=== PATIENT | male | born 1985 | race African-American/Black ===

== ENCOUNTER 2017-07-02 21:09 | Emergency (ER) | payer OTHER ==
[~2017-07-02] VITALS: Ht 188 cm; Wt 106.6 kg
--- NOTE | ~2017-07-02 | EKG ---
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
[~2017-07-02 21:09] MED LIST: [UNRECOGNIZED DRUG - OTHER]
[2017-07-02 21:10] VITALS: BP 148/99
[2017-07-02 21:40] LABS: HEMATOCRIT 42.7 % (42.0-52.0); HEMOGLOBIN 14.4 gm/dL (14.0-18.0); MCH 30.4 pg (26.0-34.0); MCHC 33.9 g/dL (28.0-37.0); MCV 89.7 fL (80.0-100.0); RBC 4.76 mil/uL (4.50-6.00); RDW 14.1 % (10.5-14.5); WBC 7.4 thou/uL (4.0-11.0)
[2017-07-02 21:46] LABS: ANION GAP 8 mmol/L (7-16); BUN 15 mg/dL (7-18); CALCIUM 8.8 mg/dL (8.5-10.1); CHLORIDE 110 mmol/L (98-107); CO2 27 mmol/L (21-32); CREATININE 1.1 mg/dL (0.7-1.3); GLUCOSE 106 mg/dL (74-106); POTASSIUM 3.9 mmol/L (3.5-5.1); SODIUM 145 mmol/L (136-145)
[2017-07-02 21:56] LABS: TROPONIN-I < 0.04 ng/mL (<0.06)
== END 2017-07-02 22:12 | disposition home or self-care (01) ==
LOC: ER 21:09
PROVIDERS: Physician Assistant
DX: R07.89 Other chest pain (principal); F17.210 Nicotine dependence, cigarettes, uncomplicated; W18.39XA Other fall on same level, initial encounter; Y93.89 Activity, other specified; Y92.89 Other specified places as the place of occurrence of the external cause; Y99.8 Other external cause status

== ENCOUNTER 2018-10-29 13:10 | Emergency (ER) | payer OTHER ==
[~2018-10-29] VITALS: Ht 203.2 cm; Wt 110.7 kg
[2018-10-29] MEDS ORDERED: LISINOPRIL-HCT1 EAC2 PO (13:26)
[2018-10-29 13:32] LABS: ABSOLUTE NEUTROPHILS 5.2 thou/uL (1.4-8.2); BASOPHILS 0.7 % (0.0-2.0); EOSINOPHILS 0.5 % (0.0-3.0); HEMATOCRIT 43.9 % (42.0-52.0); HEMOGLOBIN 14.8 gm/dL (14.0-18.0); LYMPHOCYTES 36.5 % (24.0-44.0); MCH 31.1 pg (26.0-34.0); MCHC 33.7 g/dL (28.0-37.0); MCV 92.4 fL (80.0-100.0); MONOCYTES 6.2 % (1.0-8.0); PLATELET COUNT 237 thou/uL (150-400); POLYS 56.1 % (36.0-66.0); RBC 4.75 mil/uL (4.50-6.00); RDW 13.6 % (10.5-14.5); URINE BILIRUBIN NEGATIVE (Negative); URINE BLOOD NEGATIVE (Negative); URINE CLARITY CLEAR; URINE COLOR YELLOW; URINE GLUCOSE-RANDOM* NEGATIVE (Negative); URINE KETONES NEGATIVE (Negative); URINE LEUKOCYTES-REFLEX NEGATIVE (Negative); URINE NITRITE-REFLEX NEGATIVE (Negative); URINE PROTEIN (DIPSTICK) NEGATIVE (Negative); URINE SPECIFIC GRAVITY <= 1.005 (1.005-1.035); URINE UROBILINOGEN 0.2 E.U./dl (0.2-1.0); WBC 9.4 thou/uL (4.0-11.0)
[2018-10-29 13:39] LABS: AMP/METHAMP Negative (Negative); BARBITURATES Negative (Negative); BENZODIAZEPINES Negative (Negative); COCAINE Negative (Negative); METHADONE Negative (Negative); OPIATES Negative (Negative); PCP POSITIVE (Negative)
[2018-10-29 13:40] LABS: CALCIUM 8.9 mg/dL (8.5-10.1); POTASSIUM 3.6 mmol/L (3.5-5.1)
[2018-10-29 13:45] LABS: ALBUMIN 3.9 g/dL (3.4-5.0); TOTAL BILIRUBIN 0.2 mg/dL (<0.1-1.0); TOTAL PROTEIN 7.3 g/dL (6.4-8.2)
[2018-10-29 17:44] VITALS: BP 109/76
== END 2018-10-29 17:44 | disposition home or self-care (01) ==
LOC: ER 13:10
PROVIDERS: Physician Assistant
DX: F10.10 Alcohol abuse, uncomplicated (principal); F16.10 Hallucinogen abuse, uncomplicated; R41.82 Altered mental status, unspecified; F17.210 Nicotine dependence, cigarettes, uncomplicated; I10 Essential (primary) hypertension; Z79.899 Other long term (current) drug therapy; Y90.9 Presence of alcohol in blood, level not specified

== ENCOUNTER 2019-11-10 01:05 | Emergency (ER) | payer OTHER ==
[~2019-11-10] VITALS: Ht 193 cm; Wt 106.6 kg
--- NOTE | ~2019-11-10 | EMS ---
[facility] [address] [place] [address] EMS Patient Care Report Name: BHAVESH MUKHERJEE Room #: DEP M.Drake#: [id number] Admission: 11/10/19 Attend Phys: Discharge: 11/10/19 Date of : 83 Report #: [id number] THIS REPORT FOR: //name// Report Transmitted: 11/10/2019 21:05 EMS Care Summary [place], [place]/[facility] Incident [id number] @ 11/10/2019 00:31 [facility] [place] [address] Patient BHAVESH MUKHERJEE Male, 33 Years 1985 Patient Address [address] [place] [address] Chief Complaint Per [place], panic attack like behavior Disposition Transported No Lights/[place] Reason Psychiatric Problem/Abnormal Behavior/Suicide Attempt Transported To [facility] Narrative Called to the scene for a psych. Upon arrival, [facility] on the scene. Pt was lying on the ground, handcuffed. They reported after he was placed in handcuffs he began having panic attack like behavior and refused to answer any questions. He also exhibited erratic tremor like activity that was inconsistent of seizure like activity. Finally, he said he needed his inhaler despite not appearing to be in resp distress. They requested transport to the local ER. Pt was moved to the EMS cot and loaded into the ambulance w/o incident. Vitals obtained. En route: no significant changes, mask placed on the pt. RR to [facility]. Vitals repeated. Arrived: pt taken to ER #6 and moved to their bed w/o incident. Pt care & report to ER staff. [facility] [address] [place] [address] EMS Patient Care Report Name: BHAVESH MUKHERJEE Room #: DEP Bette#: [id number] Admission: 11/10/19 Attend Phys: Discharge: 11/10/19 Date of : 83 Report #: [id number] Initial Vitals @00:58P: 82,R: 14,BP: 147/97,Pain: 0/10,GCS: 15,SpO2: 99,Revised Trauma: 12, @00:52P: 54,R: 16,BP: 156/100,Pain: 0/10,GCS: 15,SpO2: 98,Revised Trauma: 12, Assessments @00:43MENTAL:Person Oriented,Time Oriented,Place Oriented,Event Oriented,SKIN:HEENT:LUNG SOUNDS:ABDOMEN:PELVIS//GI:EXTREMITIES:Left Arm: No Abnormalities,Right Arm: No Abnormalities,Left Leg: No Abnormalities,Right Leg: No Abnormalities,PULSE:Radial: 2+ Normal,NEURO:No Abnormalities, Impression Anxiety reaction/Emotional upset Procedures @00:43ALS AssessmentResponse: UnchangedSucceeded@00:46StretcherResponse: Unchanged@PTAPatient RestraintResponse: UnchangedSucceeded Timeline 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,Patient Restraint,Response: UnchangedSucceeded, 00:31,Call Received 00:31,Dispatch Notified 00:31,Dispatched 00:33,En Route 00:42,On Scene 00:43,At Patient 00:43,ALS Assessment,Response: UnchangedSucceeded, 00:46,Stretcher,Response: Unchanged 00:48,Depart Scene 00:52,BP: 156/100 M,PULSE: 54,RR: 16 R,SPO2: 98 Ox,ETCO2: ,BG: ,PAIN: 0,GCS: 15, 00:58,BP: 147/97 M,PULSE: 82,RR: 14 R,SPO2: 99 Ox,ETCO2: ,BG: ,PAIN: 0,GCS: 15, 00:59,At Destination 01:19,Call Closed Disclaimer [email or web address] Copyright 2020 [employer] This EMS Care Summary contains data elements from the applicable legal record (which may be displayed differently). It is designed to provide pertinent information for the following purposes: continuity of care, clinical quality, and state data reporting. The complete legal record is available to ED staff and administrators of the receiving hospital in [employer]'s Patient Tracker. All data is provided "as is."
[~2019-11-10 01:05] MED LIST changes: +LISINOPRIL-HCT1 EAC2 PO
[2019-11-10 01:44] LABS: URINE BILIRUBIN NEGATIVE (Negative); URINE BLOOD NEGATIVE (Negative); URINE CLARITY CLEAR; URINE COLOR YELLOW; URINE GLUCOSE-RANDOM* NEGATIVE (Negative); URINE KETONES 1+ (Negative); URINE LEUKOCYTES-REFLEX NEGATIVE (Negative); URINE NITRITE-REFLEX NEGATIVE (Negative); URINE PROTEIN (DIPSTICK) NEGATIVE (Negative); URINE SPECIFIC GRAVITY >= 1.030 (1.005-1.035)
[2019-11-10 01:45] LABS: ABSOLUTE NEUTROPHILS 6.6 thou/uL (1.4-8.2); BASOPHILS 0.7 % (0.0-2.0); EOSINOPHILS 0.2 % (0.0-3.0); HEMATOCRIT 44.9 % (42.0-52.0); HEMOGLOBIN 15.7 gm/dL (14.0-18.0); MCH 32.2 pg (26.0-34.0); MCHC 34.8 g/dL (28.0-37.0); MCV 92.3 fL (80.0-100.0); MONOCYTES 5.7 % (1.0-8.0); PLATELET COUNT 249 thou/uL (150-400); POLYS 68.4 % (36.0-66.0); RBC 4.87 mil/uL (4.50-6.00); RDW 12.9 % (10.5-14.5); WBC 9.7 thou/uL (4.0-11.0)
[2019-11-10 01:50] LABS: AMP/METHAMP POSITIVE (Negative); BARBITURATES Negative (Negative); BENZODIAZEPINES Negative (Negative); CALCIUM 8.5 mg/dL (8.5-10.1); COCAINE Negative (Negative); CREATININE 1.4 mg/dL (0.7-1.3); METHADONE Negative (Negative); OPIATES Negative (Negative); PCP POSITIVE (Negative); POTASSIUM 3.7 mmol/L (3.5-5.1)
[2019-11-10 01:56] LABS: ALBUMIN 4.1 g/dL (3.4-5.0); TOTAL BILIRUBIN 0.5 mg/dL (0.2-1.0); TOTAL PROTEIN 7.4 g/dL (6.4-8.2)
[2019-11-10 03:07] VITALS: BP 134/96
--- NOTE | 2019-11-10 08:05 | EKG ---
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
== END 2019-11-10 03:08 ==
LOC: ER 01:05
PROVIDERS: Emergency Medicine
DX: R07.89 Other chest pain (principal); T40.995A Adverse effect of other psychodysleptics [hallucinogens], initial encounter; J45.909 Unspecified asthma, uncomplicated; F10.129 Alcohol abuse with intoxication, unspecified; F17.210 Nicotine dependence, cigarettes, uncomplicated; Z79.899 Other long term (current) drug therapy; Y90.9 Presence of alcohol in blood, level not specified; Y92.89 Other specified places as the place of occurrence of the external cause